=== PATIENT | female | born 1985 | race Caucasian/White ===

== ENCOUNTER 2021-04-04 20:20 | Emergency (ER) | payer BC, OTHER ==
[2021-04-04 20:38] VITALS: BP 141/97; PULSE 75; TEMP 98.7; BMI 30.1
[2021-04-04 22:28] LABS: BASO % 0.4 % (0-2.0); EOS % 0.5 % (0-4.5); HEMATOCRIT 40.4 % (32.4-45.2); HEMOGLOBIN 13.3 GM/dL (10.7-15.3); LYMPH % 40.7 % (8-40); MCH 29.2 pg (25.7-33.7); MCHC 32.9 g/dl (32.0-36.0); MEAN CELL VOLUME 88.9 fl (80-96); MEAN PLT VOLUME 7.4 fl (7.5-11.1); NEUT % 52.4 % (42.8-82.8); PLATELET COUNT 305 10^3/uL (134-434); RBC 4.55 M/mm3 (3.60-5.2); RDW 14.1 % (11.6-15.6); WHITE BLOOD COUNT 8.3 K/mm3 (4.0-10.0)
[2021-04-04 22:47] LABS: CHLORIDE 106 mmol/L (98-107); SODIUM 140 mmol/L (136-145)
[2021-04-04 22:50] LABS: ALBUMIN 3.9 g/dl (3.4-5.0); ANION GAP 9 MMOL/L (8-16); CALCIUM 9.5 mg/dL (8.5-10.1); CO2 25 mmol/L (21-32)
[2021-04-04 22:51] LABS: BLOOD UREA NITROGEN 9.2 mg/dL (7-18); GLUCOSE,RANDOM 87 mg/dL (74-106)
[2021-04-04 22:53] LABS: SGPT/ALT 14 U/L (13-61)
[2021-04-04 22:54] LABS: CREATININE 0.9 mg/dL (0.55-1.3); SGOT/AST 12 U/L (15-37)
[2021-04-04 22:55] LABS: BILIRUBIN,TOTAL 0.5 mg/dL (0.2-1); TOT PROT 7.6 g/dl (6.4-8.2)
[2021-04-04 22:56] LABS: ALK PHOS 71 U/L (45-117)
== END 2021-04-05 01:53 | disposition home or self-care (01) ==
LOC: JER 20:20
DX: M94.0 Chondrocostal junction syndrome [Tietze] (principal)
CPT/HCPCS: 36415; 71275-TC; 80053; 82550; 84484; 84703; 85025; 93005; 93010; 99285-25